=== PATIENT | male | born 1960 | race Two or more races ===

== ENCOUNTER 2020-03-06 13:39 | Outpatient (CLI) | payer OTHER | END 2020-03-06 18:00 | disposition home or self-care (01) | LOC: LAB 13:39 | PROVIDERS: ATTEND General Practice | DX: R05 Cough (principal); R50.9 Fever, unspecified; R06.02 Shortness of breath; Z03.818 Encounter for observation for suspected exposure to other biological agents ruled out ==

== ENCOUNTER → 2020-03-06 | Outpatient (CLI) | payer OTHER | END | disposition home or self-care (01) | LOC: ASH CLINIC 10:48 | DX: Z23 Encounter for immunization (principal); U07.1 COVID-19 ==